=== PATIENT | male | born 1955 | race Caucasian/White ===

== ENCOUNTER 2017-12-22 16:20 | Emergency (ER) | payer BC ==
[2017-12-22 17:10] LABS: ABS Basophils 0.1 10^3/ul (0-0.2); ABS Eosinophils 0.1 10^3/ul (0-0.6); ABS Lymphocytes 1.7 10^3/ul (1.0-4.8); ABS Monocytes 0.5 10^3/ul (0-0.8); ABS Neutrophils 3.6 10^3/ul (1.5-7.7); ABS Nucleated RBC 0 10^3/ul; Eosinophil % 1.8 % (0-6); Hematocrit 44 % (42-52); Hemoglobin 15.2 g/dl (14.0-18.0); Lymphocyte % 28.6 % (25-47); Mean Corpuscular HGB Conc 35 g/dl (31-36); Mean Corpuscular Hemoglobin 31 pg (27-31); Mean Corpuscular Volume 90 fL (80-94); Nucleated Red Blood Cells % 0; Platelet Count 235 10^3/ul (150-450); Red Blood Count 4.91 10^6/ul (4.0-5.4); Red Cell Distribution Width 13 % (10.5-15); White Blood Count 6.1 10^3/ul (3.5-10.8)
--- NOTE | 2017-12-22 17:28 | RAD ---
INDICATION: Chest pain COMPARISON: June 16, 2003 TECHNIQUE: PA and lateral dual-energy views were obtained. FINDINGS: Bones/Soft Tissues: There are no acute bony findings. Cardiomediastinal: The cardiomediastinal silhouette is normal. Lungs: There are no infiltrates. Pleura: There are no pleural effusions. Other: None IMPRESSION: NO ACTIVE DISEASE.
--- NOTE | 2017-12-22 18:40 | ED ---
Horace Shook Stephanie, scribed for Johnnie Dent MD on 12/22/17 at 1701 . HPI Chest Pain - HPI Summary HPI Summary: The pt is a 62 y/o M presenting to the ED with c/o CP that began on 12/21/17. His CP is located on the L lateral chest. He denies N/V, dizziness and SOB. The pt states at onset his pain lasted about 1 minute. The pt reports that occasionally when he is under a lot of stress he experiences slight CP. - History of Current Complaint Chief Complaint: EDChestWallPain Time Seen by Provider: 12/22/17 16:35 Hx Obtained From: Patient Onset/Duration: Started Days Ago - 1, Resolved Timing: Intermittent, Lasting Minutes - 1 Current Severity: Mild Pain Intensity: 2 Pain Scale Used: 0-10 Numeric Chest Pain Location: Left Lateral Chest Pain Radiates: No Aggravating Factor(s): Nothing Alleviating Factor(s): Nothing Associated Signs and Symptoms: Positive: Negative - dizziness. Negative: Shortness of Breath, Nausea, Vomiting - Allergy/Home Medications Allergies/Adverse Reactions: Allergies Allergy/AdvReac Type Severity Reaction Status Date / Time No Known Allergies Allergy Verified 12/22/17 16:30 Home Medications: Home Medications Aspirin EC TAB* [Ecotrin EC TAB*] 325 mg PO DAILY 12/22/17 [History Confirmed ] Magnesium Gluconate 27 mg PO DAILY 12/22/17 [History Confirmed 12/22/17] Multivitamins/Minerals TAB* [Theragran/minerals TAB*] 1 tab PO DAILY 12/22/17 [ History Confirmed 12/22/17] Niacin 500 mg PO QPM 12/22/17 [History Confirmed 12/22/17] Potassium 99 mg PO DAILY 12/22/17 [History Confirmed 12/22/17] PMH/Surg Hx/FS Hx/Imm Hx Endocrine/Hematology History: Denies: Hx Diabetes Cardiovascular History: Denies: Hx Hypertension Sensory History: Denies: Hx Legally Blind EENT History: Denies: Hx Deafness - Surgical History Surgery Procedure, Year, and Place: NONE Infectious Disease History: No Infectious Disease History: Denies: Traveled Outside the [place] in Last 30 Days - Family History Known Family History: Negative: Renal Disease - Social History Occupation: Employed Part-time Lives: With Family Hx Substance Use: No Substance Use Type: Reports: None Smoking Status (MU): Unknown if Ever Smoked Review of Systems Negative: Fever Positive: Chest Pain Negative: Shortness Of Breath Negative: Vomiting, Nausea Neurological: Negative - dizziness Negative: Slurred Speech All Other Systems Reviewed And Are Negative: Yes Physical Exam - Summary Physical Exam Summary: VITAL SIGNS: Reviewed. GENERAL: Patient is a well-developed and nourished MALE who is lying comfortable in the stretcher. Patient is not in any acute respiratory distress. HEAD AND FACE: No signs of trauma. No ecchymosis, hematomas or skull depressions. No sinus tenderness. EYES: PERRLA, EOMI x 2, No injected conjunctiva, no nystagmus. EARS: Hearing grossly intact. Ear canals and tympanic membranes are within normal limits. MOUTH: Oropharynx within normal limits. NECK: Supple, trachea is midline, no adenopathy, no JVD, no carotid bruit, no c- spine tenderness, neck with full ROM. CHEST: Symmetric, no tenderness at palpation LUNGS: Clear to auscultation bilaterally. No wheezing or crackles. CVS: Regular rate and rhythm, S1 and S2 present, no murmurs or gallops appreciated. ABDOMEN: Soft, non-tender. No signs of distention. No rebound no guarding, and no masses palpated. Bowel sounds are normal. EXTREMITIES: FROM in all major joints, no edema, no cyanosis or clubbing. NEURO: Alert and oriented x 3. No acute neurological deficits. Speech is normal and follows commands. SKIN: Dry and warm Triage Information Reviewed: Yes Vital Signs On Initial Exam: Initial Vitals Temp Pulse Resp BP Pulse Ox 97.7 F 76 16 155/67 98 12/22/17 16:29 12/22/17 16:29 12/22/17 16:29 12/22/17 16:29 12/22/17 16:29 Vital Signs Reviewed: Yes Diagnostics - Vital Signs Vital Signs Temp Pulse Resp BP Pulse Ox 12/22/17 16:29 97.7 F 76 16 155/67 98 - Laboratory Lab Results: Lab Results 12/22/17 12/22/17 12/22/17 Range/Units 17:03 17:03 17:03 WBC 6.1 (3.5-10.8) 10^3/ul RBC 4.91 (4.0-5.4) 10^6/ul Hgb 15.2 (14.0-18.0) g/dl Hct 44 (42-52) % MCV 90 (80-94) fL MCH 31 (27-31) pg MCHC 35 (31-36) g/dl RDW 13 (10.5-15) % Plt Count 235 (150-450) 10^3/ul MPV 8.0 (7.4-10.4) um3 Neut % (Auto) 59.4 (38-83) % Lymph % (Auto) 28.6 (25-47) % [place] % (Auto) 8.8 H (0-7) % Eos % (Auto) 1.8 (0-6) % Baso % (Auto) 1.4 (0-2) % Absolute Neuts (auto) 3.6 (1.5-7.7) 10^3/ul Absolute Lymphs (auto) 1.7 (1.0-4.8) 10^3/ul Absolute Monos (auto) 0.5 (0-0.8) 10^3/ul Absolute Eos (auto) 0.1 (0-0.6) 10^3/ul Absolute Basos (auto) 0.1 (0-0.2) 10^3/ul Absolute Nucleated RBC 0 10^3/ul Nucleated RBC % 0 Sodium 137 L (139-145) mmol/L Potassium 3.8 (3.5-5.0) mmol/L Chloride 104 (101-111) mmol/L Carbon Dioxide 25 (22-32) mmol/L Anion Gap 8 (2-11) mmol/L BUN 14 (6-24) mg/dL Creatinine 0.90 (0.67-1.17) mg/dL Est GFR ( Amer) 109.3 (>60) Est GFR (Non-Af Amer) 85.0 (>60) BUN/Creatinine Ratio 15.6 (8-20) Glucose 97 (70-100) mg/dL Calcium 9.4 (8.6-10.3) mg/dL Total Bilirubin 0.50 (0.2-1.0) mg/dL AST 27 (13-39) U/L ALT 24 (7-52) U/L Alkaline Phosphatase 63 (34-104) U/L Total Creatine Kinase 248 H (10-223) U/L Troponin I 0.00 (<0.04) ng/mL B-Natriuretic Peptide 24 ( - 100) pg/mL Total Protein 7.3 (6.4-8.9) g/dL Albumin 4.3 (3.2-5.2) g/dL Globulin 3.0 (2-4) g/dL Albumin/Globulin Ratio 1.4 (1-3) TSH 1.57 (0.34-5.60) mcIU/mL Result Diagrams: 12/22/17 17:03 12/22/17 17:03 Lab Statement: Any lab studies that have been ordered have been reviewed, and results considered in the medical decision making process. - Radiology CXR Xray Interpretation: No Acute Changes Radiology Interpretation Completed By: Radiologist - No active disease. ED physician has reviewed this report. - EKG 16:41 Cardiac Rate: NL EKG Rhythm: Sinus Rhythm - [address] Segment: Normal Ectopy: None EKG Interpretation: No ST elevations Re-Evaluation - Re-Evaluation First Eval Re-Evaluation Time: 18:38 Change: Improved - The pt states he is feeling better at this time. Chest Pain Course/Dx - Course Assessment/Plan: This patient is a 62-year-old male who presents to the emergency department with a chief complaint of having had a spasm like he he pulled a muscle in the left side over the chest. He reports that the symptoms lasted for a couple seconds and resolved. Vision continues to be asymptomatic. Blood test results without any significant abnormality and except for slight increase in CPK. I believe that the patient has a chest wall pain and not a acute coronary syndrome. The patients troponin is negative, he has no comorbidities and he is asymptomatic. I discussed all the findings and test results with the patient. Patient was instructed to return to the emergency room immediately if any of the symptoms return or worsens. Plan of care was discussed with the patient and understands and agrees. All questions were answered at patient satisfaction. There were no further complaints or concerns. Lung exam before discharge: CTA B/L. Good air exchange. No wheezing or crackles heard. CVS: S1 and S2 present. No murmurs appreciated. Patient is alert and oriented x 3. Patient is hemodynamically stable. Patient will be discharged home with follow up PCP in the next 2-3 days - Chest Pain Differential Diagnosis/HQI/PQRI: Acute MT, ACS, Angina, Aortic Aneurysm, CHF, Chest Wall, GI Disease, Lower Respiratory Infection - Diagnoses Provider Diagnoses: Chest wall pain Discharge - Sign-Out/Discharge Documenting (check all that apply): Discharge/Admit/Transfer - Discharge - Discharge Plan Condition: Stable Disposition: HOME Prescriptions: Ibuprofen TAB* [Motrin TAB* 600 MG] 600 mg PO Q8H PRN #20 tab PRN Reason: Pain Patient Education Materials: Chest Wall Pain (ED) Referrals: Rubi Brennan MD [Primary Care Provider] - 3 Days Additional Instructions: Return to the ED for new or worsening symptoms. The documentation as recorded by the Horace hauser Stephanie accurately reflects the service I personally performed and the decisions made by Filipe wu Walter, MD.
[2017-12-22 18:54] VITALS: BP 145/81
== END 2017-12-22 18:52 | disposition home or self-care (01) ==
LOC: ED 16:20
DX: R07.89 Other chest pain (principal)
CPT/HCPCS: 36415; 71046; 80053; 82550; 83880; 84443; 84484; 85025; 93005; 99283